=== PATIENT | female | born 1985 ===

== ENCOUNTER 2019-05-18 16:41 | Inpatient (IN) | payer MEDICAID, OTHER, SELFPAY ==
[2019-05-18] MEDS ORDERED: Ringers Lactate 1,000 ML IV PRN (16:51)
[2019-05-18] MEDS ORDERED: METHYLERGONOVINE 0.2MG/ML AMP IM PRN (16:51)
[2019-05-18] MEDS ORDERED: PROMETHAZINE 25 MG/ML VIAL IV PRN ×2 (16:51)
[2019-05-18] MEDS ORDERED: BUTORPHANOL 1 MG/ML INJ IV PRN (16:51)
[2019-05-18] MEDS ORDERED: Ringers Lactate 1,000 ML IV SCH (17:00)
[2019-05-18] MEDS ORDERED: LIDOCAINE 1% MPF 30 ML VIAL ONE (17:23)
[2019-05-18] MEDS ORDERED: OXYTOCIN/LR 20 UNIT/1,000 ML BAG IV ONE (17:24)
--- NOTE | 2019-05-18 17:45 | P.OBGYNHP ---
Certification for Inpatient Patient admitted to: Inpatient With expected LOS: <2 Midnights Patient will require the following post-hospital care: None Practitioner: I am a practitioner with admitting privileges, knowledge of patient current condition, hospital course, and medical plan of care. Services: Services provided to patient in accordance with Admission requirements found in Title 42 Section 412.3 of the Code of Federal Regulations Patient History Date of Service: 05/18/19 Reason for admission: LABOR History of Present Illness: Patient is a 33-year-old 001 who presents at 37 weeks and 4 days gestation in labor. Patient had spontaneous rupture of membranes last night around 10 pm. Patient did not go to the hospital because she felt that it was just a UTI that she was experiencing. Patient has obtained care [facility]. Patient currently denies vaginal bleeding. Reports good movements and states that she is cj about every 1-2 min. Patient has a history of 1 prior vaginal delivery which was 13 years ago. Patient states that during this she did not have any complications except for the on an ultrasound echogenic foci were noted on the bowel. Other than that no other issues. She has been smoking throughout her . She states she smokes half a pack per day. She states she used to smoke more before. records have been requested from [facility]. Allergies No Known Allergies Allergy (Unverified 05/18/19 16:50) - Past Medical/Surgical History Has patient received pneumonia vaccine in the past: No Past Medical History: Patient denies medical history -: One prior vaginal delivery - Social History Smoking Status: Heavy Tobacco smoker (>10 cigarettes/day) Smoking therapy provided: No Patient receptive to therapy: No Alcohol use: No CD- Drugs: No Review of Systems 10-point ROS is otherwise unremarkable Physical Examination - General General: Alert, Oriented x3, Moderate distress HEENT: Atraumatic Neck: Supple Respiratory: Normal air movement Cardiovascular: No edema, Normal pulses Gastrointestinal: Other (gravid) Musculoskeletal: No clubbing, No swelling Integumentary: No rashes, No breakdown Neurological: Normal speech - Female Pelvic External genitalia: Normal, No lesions, No masses Vagina: Normal, [place], Moist Cervix: Dilation (8 cm ), Effacement (80%, swollen), station (-2) Uterus: Gravid Adnexa: Unable to evaluate - Obstetrics Contractions: Frequency (every 2-3 minutes) Amniotic membrane: SROM Assessment and Plan - Plan Patient is a 33-year-old 001 who presents at 37 weeks and 4 days gestation in labor. Patient had spontaneous rupture of membranes last night around 10pm. Patient will be admitted for management of labor. She desires an epidural. Anesthesia be notified. Continuous maternal monitoring be performed. GBS status is unknown. Since she has a low-grade temperature and there is some tachycardia we will go ahead and begin penicillin. - Advance Directives Does patient have a Living Will: No Does patient have a Durable POA for Healthcare: No
[2019-05-18 17:57] LABS: Absolute Lymphocytes (CBC) 1.5 K/uL (0.7-4.9); Basophils % 0.4 % (0-1.3); Hematocrit 31.4 % (36.0-45.0); Lymphocytes % 5.8 % (15.3-44.8); MPV 8.8 fL (7.6-11.3); RBC Red Blood Cell Count 3.46 M/uL (3.86-4.86)
[2019-05-18 18:01] LABS: Urine Appearance CLOUDY; Urine Bilirubin NEGATIVE (NEG); Urine Blood 1+ (NEG); Urine Color DK YELLOW; Urine Glucose NEGATIVE (NEG); Urine Protein 1+ (NEG)
[2019-05-18] MEDS ORDERED: CARBOPROST TROME 250 MCG/ML IM ONE (18:03)
[2019-05-18] MEDS ORDERED: ROPIVACAINE HCL 100 ML IV PRN (18:07)
[2019-05-18] MEDS ORDERED: FENTANYL CITR 100 MCG/2 ML IV ONE (18:08)
[2019-05-18] MEDS ORDERED: ROPIVACAINE HCL 20 ML ONE (18:12)
[2019-05-18 18:14] LABS: Glucose Level 110 mg/dL (74-106)
[2019-05-18 18:19] LABS: Urine Microscopic Reflex ORDER UMIC
[2019-05-18 18:24] VITALS: BMI 32.3
[2019-05-18] MEDS ORDERED: FENTANYL CITR 100 MCG/2 ML ONE (18:32)
[2019-05-18 18:52] LABS: Platelet Estimate ADEQ
[2019-05-18 18:53] LABS: Blood Morphology Comment NOT SEEN (NOT SEEN)
[2019-05-18 18:56] LABS: Urine Bacteria 20-50 /HPF (<20); Urine Culture Reflex Order REFLEXED; Urine Mucus 2+ /HPF (NONE SEEN); Urine RBC <5 /HPF (NONE SEEN)
[2019-05-18] MEDS ORDERED: miSOPROStol 100 MCG TAB ONE ×2 (19:20)
[2019-05-18] MEDS ORDERED: PENICILLIN G POT 5 MU/VIAL IV ONE (21:32)
[2019-05-18] MEDS ORDERED: NA CHLORIDE 0.9% 100 ML IV ONE (21:32)
[2019-05-18] MEDS ORDERED: BISACODYL 10 MG RECTAL SUPP RECT PRN (23:42)
[2019-05-18] MEDS ORDERED: Oxycodone HCl/Acetaminophen 1 TAB TAB PO PRN (23:42)
[2019-05-18] MEDS ORDERED: DOCUSATE NA/SENNA CONC 1 TAB PO PRN (23:42)
[2019-05-18] MEDS ORDERED: IBUPROFEN 200 MG TAB PO PRN (23:42)
[2019-05-18] MEDS ORDERED: ONDANSETRON 4 MG (ODT) TAB PO PRN (23:42)
[2019-05-18] MEDS ORDERED: ACETAMINOPHEN 500 MG TAB PO PRN (23:42)
--- NOTE | 2019-05-18 23:45 | P.OP ---
Date of Service: 05/18/19 Findings and Operative Technique Patient delivered a viable female in cephalic presentation on 05/18/19 at 23:19 in direct occiput posterior position over a midline episiotomy. Once was delivered the nose and mouth were suctioned with a suction bulb and the cord was clamped and cut. Infant was then placed on mother's abdomen for skin to skin bonding. Attention was then turned to the umbilical cord and cord blood was obtained. Following this the placenta was delivered with gentle traction at 11:25 p.m.. Placenta was inspected and noted to be intact. Episiotomy was then repaired with a 2 0 Vicryl in the usual fashion. Patient tolerated this well. Uterus was massaged and found to be firm. Estimated blood loss was 200 cc. Mom was encouraged to breastfeed. Apgars were 9 and 10. Weight was found to be 7 lb 8 oz. 1st stage of labor was 6 hr and 1 min. 2nd stage was 34 min. Both mom and baby are doing well.
[2019-05-19 04:34] LABS: Absolute Lymphocytes (CBC) 2.8 K/uL (0.7-4.9); Basophils % 0.4 % (0-1.3); Hematocrit 30.1 % (36.0-45.0); Lymphocytes % 8.6 % (15.3-44.8); MPV 8.4 fL (7.6-11.3); RBC Red Blood Cell Count 3.31 M/uL (3.86-4.86)
[2019-05-19] MEDS ORDERED: AMPICILLIN SODIUM 2 GM/VIAL VIAL ONE (05:22)
[2019-05-19 05:23] LABS: Blood Morphology Comment NOT SEEN (NOT SEEN); Platelet Estimate ADEQ
[2019-05-19] MEDS ORDERED: NA CHLORIDE 0.9% 100 ML IV ONE (05:26)
[2019-05-19] MEDS: AMPICILLIN SODIUM 2 GM in NA CHLORIDE 0.9% 100 ML IVPB SCH ×3 (05:48→19:00)
[2019-05-19] MEDS ORDERED: GENTAMICIN 80 MG/100 ML BAG 80 MG/100 ML BAG IV SCH (09:00)
[2019-05-19] MEDS: GENTAMICIN 80 MG/100 ML BAG 80 MG/100 ML BAG IV SCH ×2 (15:00→23:35)
[2019-05-20 00:25] LABS: RPR (Rapid Plasma Reagin) NON-REACT (NON-REACT)
[2019-05-20] MEDS: AMPICILLIN SODIUM 2 GM in NA CHLORIDE 0.9% 100 ML IVPB SCH ×2 (01:00→07:00)
[2019-05-20 06:56] LABS: Absolute Lymphocytes (CBC) 3.1 K/uL (0.7-4.9); Basophils % 0.3 % (0-1.3); Hematocrit 28.3 % (36.0-45.0); Lymphocytes % 17.7 % (15.3-44.8); MPV 8.4 fL (7.6-11.3)
[2019-05-20] MEDS: GENTAMICIN 80 MG/100 ML BAG 80 MG/100 ML BAG IV SCH (07:35)
[2019-05-20 09:57] VITALS: BP 139/83; TEMP 98.1
[2019-05-22 02:52] LABS: HBsAG Nonreactive (Nonreactive)
== END 2019-05-20 12:00 | disposition home or self-care (01) | DRG 807 ==
LOC: L&D 16:41 → 2ND-WC 16:58
PROVIDERS: ADMIT Student in an Organized Health Care Education/Training Program; ATTEND Student in an Organized Health Care Education/Training Program
PROC: 10E0XZZ Delivery of Products of Conception, External Approach (ICD-10-PCS; principal; 2019-05-18)
PROC: 0W8NXZZ Division of Female Perineum, External Approach (ICD-10-PCS; 2019-05-18)
DX: O80 Encounter for full-term uncomplicated delivery (principal); Z37.0 Single live birth; Z3A.37 37 weeks gestation of pregnancy
CPT/HCPCS: 36415; 80170; 81003; 81015; 82565; 82947; 85025; 86592; 86762; 86850; 86900; 86901; 87086; 87088; 87340; G0433; J0290; J1580; J2210; J2590; J2795; J3010